=== PATIENT | female | born 1965 | race Caucasian/White ===

== ENCOUNTER 2017-10-11 20:34 | Emergency (ER) | payer BC ==
[~2017-10-11] VITALS: Ht 152.4 cm; Wt 81.7 kg
[~2017-10-11 20:34] MED LIST: ALBIPROI INH; CLOB.05TC TOP; COMBIVENT RESPIM4 GM IH; ESTR2 PO; FAMO20 PO; FLUSAL2505 IH; IBUP200 PO; OMEP10ER PO; QC MULTI VITE PO; VITAMIN D35000 UNIT PO
[2017-10-11] MEDS ORDERED: OMEPRAZOLE MAGN20 MG PO (20:58)
[2017-10-11 21:30] LABS: Influenza A Positive (NEGATIVE); Influenza B Negative (NEGATIVE)
[2017-10-11] MEDS ORDERED: Tamiflu75 MG PO (23:21)
[2017-10-11] MEDS ORDERED: IBUP600 PO (23:21)
== END 2017-10-11 23:55 | disposition home or self-care (01) ==
LOC: ER 20:34
PROVIDERS: Emergency Medicine
DX: J10.1 Influenza due to other identified influenza virus with other respiratory manifestations (principal); Z79.899 Other long term (current) drug therapy; Z85.528 Personal history of other malignant neoplasm of kidney
CPT/HCPCS: 71046; 87804; 99283

== ENCOUNTER 2019-04-16 20:23 | Emergency (ER) | payer BC ==
[~2019-04-16] VITALS: Ht 152.4 cm; Wt 88.0 kg
[~2019-04-16 20:23] MED LIST changes: +IBUP600 PO; +OMEPRAZOLE MAGN20 MG PO; +Tamiflu75 MG PO
[2019-04-16 21:08] LABS: BASOPHILS ABSOLUTE AUTO 0.04 K/mm3 (0.00-0.23); BASOPHILS PERCENT AUTO 1 % (0-2); EOSINOPHILS PERCENT AUTO 1 % (0-6); Hematocrit 36.3 % (33.0-51.0); Hemoglobin 12.6 g/dL (11.5-16.0); IMMATURE GRAN ABSOLUTE AUTO 0.01 K/mm3 (0.00-0.10); IMMATURE GRAN PERCENT AUTO 0 % (0-1); LYMPHOCYTES ABSOLUTE AUTO 1.76 K/mm3 (0.84-5.20); LYMPHOCYTES PERCENT AUTO 24 % (21-46); MONOCYTES ABSOLUTE AUTO 0.53 K/mm3 (0.16-1.47); MONOCYTES PERCENT AUTO 7 % (4-13); Mean Corpuscular HGB 32.1 pg (26.0-34.0); Mean Corpuscular HGB Conc 34.7 g/dL (31.5-36.5); Mean Corpuscular Volume 92 fL (80-100); Mean Platelet Volume 9.3 fL (9.1-12.4); NEUTROPHILS ABSOLUTE AUTO 4.78 K/mm3 (1.96-9.15); NEUTROPHILS PERCENT AUTO 66 % (41-73); Platelet Count 362 K/mm3 (150-400); RDW Coefficient Variation 11.9 % (11.7-14.2); Red Blood Cell Count 3.93 M/mm3 (3.80-5.20); White Blood Cell Count 7.22 K/mm3 (4.00-11.30)
[2019-04-16 21:23] LABS: Albumin, Blood 3.4 g/dL (3.4-5.0); Albumin/Globulin Ratio 0.8 (0.8-1.8); Bilirubin, Total 0.5 mg/dL (0.1-1.0); Creatinine, Blood 1.25 mg/dL (0.40-1.00); Globulin, Blood 4.1 g/dL (2.2-4.0); Potassium, Blood 3.9 mmol/L (3.5-5.5); Total Protein, Blood 7.5 g/dL (6.4-8.2)
[2019-04-16 21:26] LABS: Source, Urine Clean Catch
[2019-04-16 21:37] LABS: Bilirubin, Urine Neg (Neg); Blood, Urine Neg (Neg); Glucose Qualitative, Urine Neg (Neg); Ketones, Urine Neg (Neg); Leukocyte Esterase, Urine Neg (Neg); Nitrite, Urine Neg (Neg); Protein, Urine Neg (Neg); Specific Gravity, Urine 1.005 (1.003-1.022); Urobilinogen, Urine NORM (Normal)
[2019-04-16 21:49] LABS: Appearance, Urine Clear (Clear); Color, Urine Yellow (P-Yellow)
[2019-04-16] MEDS ORDERED: Keflex500 MG PO (22:12)
== END 2019-04-16 22:37 | disposition home or self-care (01) ==
LOC: ER 20:23
PROVIDERS: Emergency Medicine
DX: T81.40XA Infection following a procedure, unspecified, initial encounter (principal); L03.311 Cellulitis of abdominal wall; J45.909 Unspecified asthma, uncomplicated; F32.9 Major depressive disorder, single episode, unspecified; Z79.899 Other long term (current) drug therapy
CPT/HCPCS: 36415; 80053; 81003; 85025; 99283

== ENCOUNTER 2020-05-14 08:07 | Day surgery (SDC) | payer BC ==
[~2020-05-14] VITALS: Ht 152.4 cm; Wt 89.2 kg
[~2020-05-14 08:07] MED LIST changes: +BREO ELLIPTA 11 EAC1 IH; +HYDCHL25 PO; +Keflex500 MG PO; +PROAIR DIGIHAL90 MCG; +TRIA15CR3 TOP
== END 2020-05-14 09:50 | disposition home or self-care (01) ==
LOC: ORSCSDS 08:07
PROVIDERS: Surgery
PROC: 0DJD8ZZ Inspection of Lower Intestinal Tract, Via Natural or Artificial Opening Endoscopic (ICD-10-PCS; principal; 2020-05-14 09:15)
DX: Z12.11 Encounter for screening for malignant neoplasm of colon (principal); J44.9 Chronic obstructive pulmonary disease, unspecified; K21.9 Gastro-esophageal reflux disease without esophagitis; I10 Essential (primary) hypertension; R73.03 Prediabetes; E66.9 Obesity, unspecified; Z68.38 Body mass index [BMI] 38.0-38.9, adult; Z87.891 Personal history of nicotine dependence; Z79.899 Other long term (current) drug therapy
CPT/HCPCS: J2405; J2704; J7120

== ENCOUNTER 2021-04-08 09:37 | Emergency (ER) | payer BC ==
[~2021-04-08] VITALS: Ht 152.4 cm; Wt 97.5 kg
[2021-04-08] MEDS ORDERED: PRED20 PO (11:30)
== END 2021-04-08 11:59 | disposition home or self-care (01) ==
LOC: ER 09:37
DX: J98.01 Acute bronchospasm (principal); K21.9 Gastro-esophageal reflux disease without esophagitis; Z79.899 Other long term (current) drug therapy
CPT/HCPCS: 71045; 94640; 99284-25

== ENCOUNTER 2022-02-06 11:53 | Day surgery (SDC) | payer BC ==
[~2022-02-06] VITALS: Ht 152.4 cm; Wt 98.4 kg
[~2022-02-06 11:53] MED LIST changes: +PRED20 PO
== END 2022-02-06 14:21 | disposition home or self-care (01) ==
LOC: ORSCSDS 11:53
PROVIDERS: Internal Medicine Gastroenterology
PROC: 0DB58ZX Excision of Esophagus, Via Natural or Artificial Opening Endoscopic, Diagnostic (ICD-10-PCS; principal; 2022-02-06 13:15)
DX: K21.9 Gastro-esophageal reflux disease without esophagitis (principal); K44.9 Diaphragmatic hernia without obstruction or gangrene; J44.9 Chronic obstructive pulmonary disease, unspecified; Z87.891 Personal history of nicotine dependence; E66.01 Morbid (severe) obesity due to excess calories; Z68.41 Body mass index [BMI] 40.0-44.9, adult; Z79.899 Other long term (current) drug therapy
CPT/HCPCS: 88305; J2704; J7120